=== PATIENT | male | born 1975 | race Caucasian/White ===

== ENCOUNTER 2018-02-08 10:47 | Emergency (ER) | payer OTHER ==
[2018-02-08] MEDS: predniSONE 20 MG TAB PO (11:21)
[2018-02-08] MEDS: KETOROLAC 60 MG INJ IM (11:21)
[2018-02-08] MEDS: morphine LIQ (10 MG/5 ML) CUP PO (11:49)
[2018-02-08 12:01] LABS: URINE BLOOD (Dip) POC Negative (NEGATIVE); URINE GLUCOSE (Dip) POC Negative (NEGATIVE); URINE KETONES (Dip) POC Negative (NEGATIVE); URINE LEUKOCYTE EST (Dip) POC Negative (NEGATIVE); URINE NITRITE (Dip) POC Negative (NEGATIVE); URINE TOTAL PROTEIN POC 3+ (NEGATIVE)
[2018-02-08] MEDS: NICARDipine HCL 30 MG CAPSULE PO (12:53)
== END 2018-02-08 15:16 | disposition home or self-care (01) ==
LOC: FTE 10:47
DX: M54.42 Lumbago with sciatica, left side (principal); I10 Essential (primary) hypertension
CPT/HCPCS: 72131; 81003; 96372; 99285-25